=== PATIENT | male | born 1970 | race Caucasian/White ===

== ENCOUNTER 2019-08-13 08:18 | Emergency (ER) | payer OTHER ==
[~2019-08-13] VITALS: Ht 177.8 cm; Wt 99.8 kg
[2019-08-13] MEDS ORDERED: PROZAC20 MG PO (08:36)
[2019-08-13] MEDS ORDERED: OSEL75CA PO (12:55)
[2019-08-13] MEDS ORDERED: ZITHROMAX500 MG PO (12:55)
== END 2019-08-13 13:22 | disposition home or self-care (01) ==
LOC: ER 08:18
DX: J11.1 Influenza due to unidentified influenza virus with other respiratory manifestations (principal); B96.0 Mycoplasma pneumoniae [M. pneumoniae] as the cause of diseases classified elsewhere

== ENCOUNTER 2022-04-28 09:52 | Emergency (ER) | payer OTHER ==
[~2022-04-28] VITALS: Ht 177.8 cm; Wt 97.5 kg
[~2022-04-28 09:52] MED LIST: OSEL75CA PO; PROZAC20 MG PO; ZITHROMAX500 MG PO
[2022-04-28] MEDS ORDERED: SULINDAC200 MG PO (10:11)
[2022-04-28] MEDS ORDERED: CYMBALTA60 MG PO (10:11)
== END 2022-04-28 12:02 | disposition home or self-care (01) ==
LOC: ER 09:52
DX: M25.551 Pain in right hip (principal)